=== PATIENT | male | born 1965 | race Caucasian/White ===

== ENCOUNTER 2021-08-19 10:00 | Outpatient (RCR) | payer MEDICARE, MEDICAID, SELFPAY ==
--- NOTE | 2021-07-08 13:49 | OTOPEVAL ---
OCCUPATIONAL THERAPY INITIAL EVALUATION: 07/08/2021 Thank you for referring Reggie Sewell to [facility].? The patient is scheduled to be seen for therapy?1-2x/week for 6 weeks. Please review, sign, date and return this plan of care ALICIA. I agree with and certify that the following plan of care is medically necessary. 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 Subjective Information Patient reports difficulty Query Text:As Reported By Patient/ with opening containers, Family packages. Patient requires occasional assistance with toileting tasks of clothing management and has a goal of being able to complete toileting tasks independently. Patient would like to continue on being able to don/ doff shirt. Patient reports would like to continue increasing and maintaining general strengthening and mobility of bilateral UE to better assist with functional ADLs and activities. Prior Level of Function Activity Level (Last 3 Months) Hand Dominance Right Activity of Daily Living Ability Needs Some Help Indoor/Home Mobility Needs Some Help Community Mobility Needs Some Help Stairs Ability Not-Applicable Cooking No Cleaning No Laundry No Shopping No Driving No Home Setting Home Type House Environmental Barriers Ramp Living Situation With Relatives Mobility Assistive Devices (Used Last 3 Hospital Bed,Lift, Chair, Months) Walker, Wheeled,Wheelchair, Manual
--- NOTE | 2021-07-08 17:30 | PTOPEVAL ---
Thank you for referring Reggie Sewell to [facility].? The patient is scheduled to be seen for therapy?1-2 x/week for 6 weeks. Please review, sign, date and return this plan of care ALICIA. I agree with and certify that the following plan of care is medically necessary. Referring Physician Date Attending Provider: Tomas Contreras Diagnosis myotonic dystrophy Onset 07/1998 Additional Evaluation Detail He has clinton AFO, but does not wear them. Subjective Information He requires assistance with Query Text:As Reported By Patient/ bed mobility, transfers, ADL's, Family and car transfers. He walks limited distances in the house. He reports history of falls with 2 falls in the past 6 months. Falls occurred with walking. Does not perform his HEP, I'm not motivated to perform anything at home . Previous Treatments Previous Treatments For This Problem yes, 1 yr Prior Level of Function Activity Level (Last 3 Months) Hand Dominance Right Activity of Daily Living Ability Needs Some Help Indoor/Home Mobility Needs Some Help Community Mobility Needs Some Help Stairs Ability Not-Applicable Cooking No Cleaning No Laundry No Shopping No Driving No Home Setting Home Type House Environmental Barriers Ramp Living Situation With Relatives Support Available Bronze Chaser,Local Family Support,Meals on Wheels, Physical Assist Available Mobility Assistive Devices (Used Last 3 Hospital Bed,Lift, Chair, Months) Walker, Wheeled,Wheelchair, Manual Orthotic/Prosthetic Devices Left Lower Extremity Orthosis, Right Lower Extremity Orthosis Bathroom Environment Shower, Curtain Bathing Equipment Grab Bars,Hand Held Shower,Tub Seat With Back Toileting Equipment Grab Bars,Raised Toilet Seat, Tall Toilet Comments Additional Prior Level of Function Patient lives with brother and Comments sister in law in a single level home with a ramp to enter. Patient uses a 2 WW for functional mobility in home, when too tired uses a
--- NOTE | 2021-07-15 08:29 | PCPTNOTE ---
Patient called & cancelled scheduled appointment this date due to being sick.
--- NOTE | 2021-07-17 10:11 | PCPTNOTE ---
Patient called & cancelled scheduled appointment this date due to being sick.
--- NOTE | 2021-08-19 10:34 | OTOPEVAL ---
OCCUPATIONAL THERAPY RE-EVALUATION AND DISCHARGE SUMMARY 08/19/21 Reggie presents today for OT re-evaluation. He has been working with outpatient OT x4 weeks. Referring diagnosis of myotonic dystrophy. Treatments over the last few weeks have consisted of educating the patient on ROM and functional strengthening HEP for bilateral UEs. In the clinic we have unfortunately been unable to progress this HEP due to lack of progress. He continues to have severe distal weakness in the wrists/hands. Discussed with the patient that his home exercise program is to maintain the function he has and stressed the importance of regular compliance. Discharging today with patient independent with HEP. Thank you for referring Reggie Sewell to [facility]. Please review, sign, date and return this D/C Summary ALICIA. I agree with and certify that the following plan of care is medically necessary. Referring Physician Date Referring Provider: Tomas Contreras MD Re-Evaluation Information Problem Diagnosis myotonic dystrophy Onset 07/1998 Subjective Information Patient reports that being Query Text:As Reported By Patient/ able to sign his name has Family improved. He reports that his family helps with opening containers and packages - when attempting to show him adaptive equipment to improve his independence with this, he was not interested. He states that he can use the restroom by himself, but if someone is there with him they help with clothing management. Overall he reports being about the same with ADLs. Pain Assessment Timing of Pain Assessment Timing of Pain Assessment Re-assessment Pain Scale Pain Scale Used Numeric (1 - 10) Self Report Pain Assessment Left Shoulder(s) Reported Pain Level 7 Pain Description Sharp Back Reported Pain Level 0 Pain Score Pain Score 7,0: Self Report Interventions Used Interventions Used By Clinicians Rest Upper Extremity Range of Motion Scapular/ Shoulder Range of Motion Bilateral Reason Not Measured WNL/Left,WNL/Right Elbow/Forearm Range of Motion Bilateral Reason Not Measured WNL/Left,WNL/Right Wrist Range of Motion Bilateral Reason Not Measured WNL/Left,WNL/Right Finger Range of Motion Bilateral Finger Range of Motion Limitations Muscle Weakness Finger Range of Motion Comments R hand MCP joints to ~90 degrees of flexion, PIPs to ~ 15 degrees of flexion, DIP at 0 degrees - No change since SOC. L hand MCP joints
--- NOTE | 2021-08-19 11:38 | PTOPEVAL ---
PHYSICAL THERAPY PROGRESS REPORT AND DISCHARGE SUMMARY. Thank you for referring Reggie Sewell to [facility].? The patient is to be discharged from skilled physical therapy services at this time. Please review, sign, date and return this plan of care ALICIA. I agree with and certify that the following plan of care is medically necessary. Referring Physician Date Attending Provider: Tomas Contreras Evaluation Information Diagnosis myotonic dystrophy Onset 07/1998 Subjective Information Pt states he thinks his Query Text:As Reported By Patient/ walking has improved. He Family states he can walk to the back door to let the dog out. Pt states he has had 3 falls in the last 6 months that he can remember. Pt states he moves the way he wants to move, and does not feel like he needs to change the way he moves. He states he enjoys sleeping and watching TV. He reports poor compliance with her HEP. Prior Level of Function Activity Level (Last 3 Months) Hand Dominance Right Activity of Daily Living Ability Needs Some Help Indoor/Home Mobility Needs Some Help Community Mobility Needs Some Help Stairs Ability Not-Applicable Cooking No Cleaning No Laundry No Shopping No Driving No Home Setting Home Type House Environmental Barriers Ramp Living Situation With Relatives Support Available [employer] Electrician,Local Family Support,Meals on Wheels, Physical Assist Available Mobility Assistive Devices (Used Last 3 Hospital Bed,Lift, Chair, Months) Walker, Wheeled,Wheelchair, Manual Orthotic/Prosthetic Devices Left Lower Extremity Orthosis, Right Lower Extremity Orthosis Bathroom Environment Shower, Curtain Bathing Equipment Grab Bars,Hand Held Shower,Tub Seat With Back Toileting Equipment Grab Bars,Raised Toilet Seat, Tall Toilet Pain Assessment Self Report Pain Assessment Left Shoulder(s) Reported Pain Level 7 Back Reported Pain Level 0 Lower Extremity Range of Motion Gross Lower Extremity Range of Motion ankle motion decreased Comments bilaterally Lower Extremity Muscle Strength Testing Hip Strength Left Hip Flexion Stren
== END 2021-08-20 11:48 | disposition home or self-care (01) ==
LOC: ANHOT 10:00
DX: G71.11 Myotonic muscular dystrophy (principal)
CPT/HCPCS: 97110; 97112; 97116; 97162; 97165; 97530